=== PATIENT | male | born 1990 | race African-American/Black ===

== ENCOUNTER → 2022-06-12 | Emergency (ER) | payer OTHER ==
[~2022-06-12] VITALS: Ht 185.4 cm; Wt 98.9 kg
[~2022-06-12] MED LIST: IV NORMAL SALINE 1000 ML BAG IV ONE; LIDOCAINE 2%-EPI 1:100,000 20 ML VIAL IJ ONE; LIDOCAINE 2%-EPI 1:100,000 20 ML VIAL ONE
--- NOTE | 2022-06-12 00:48 | NUR ---
Ambulated to room #4, informed of plan of care, MD at bedside for exam. no s/s of any distress noted.
--- NOTE | 2022-06-12 01:09 | NUR ---
Supplies pulled for MD at bedside, [employer] with 2% epi, nasal tray and gelfoam.
[2022-06-12 01:29] LABS: HEMATOCRIT 46.6 % (36.7-47.1); MEAN CORPUSCULAR HEMOGLOBIN 27.5 uug (23.8-33.4); MEAN CORPUSCULAR VOLUME 82.7 fL (73.0-96.2); PLATELET COUNT (AUTO) 406 K/uL (152-348)
[2022-06-12 01:37] LABS: CREATININE 1.2 mg/dL (0.6-1.3); POTASSIUM 3.3 mmol/L (3.5-5.1)
[2022-06-12 01:43] LABS: BILIRUBIN,TOTAL 0.5 mg/dL (0.2-1.0); TOTAL PROTEIN, SERUM 8.6 g/dL (6.4-8.2)
--- NOTE | 2022-06-12 02:03 | NUR ---
Patient sitting up at bedside, current b/p 151/109.
--- NOTE | 2022-06-12 02:16 | NUR ---
MD aware of b/p at this time 171/108-117- 20-96%, at bedside talking with patient. ACI given, states understanding, remains stable for discharge home.
[2022-06-12 02:27] VITALS: BP 171/108
--- NOTE | 2022-06-12 02:40 | NUR ---
Patient discharged to home in stable condition with patient taking Uber home. Written and verbal after care instructions given. Patient verbalizes understanding of instructions. Stressed follow up or return to ER for worsening s/s.
== END | disposition home or self-care (01) ==
LOC: ER 01:00
DX: K06.8 Other specified disorders of gingiva and edentulous alveolar ridge (principal); R03.0 Elevated blood-pressure reading, without diagnosis of hypertension; Z88.1 Allergy status to other antibiotic agents; Z88.2 Allergy status to sulfonamides; Z83.79 Family history of other diseases of the digestive system
CPT/HCPCS: 36415; 85025; 85730; A4663